=== PATIENT | male | born 1990 | race Caucasian/White ===

== ENCOUNTER 2019-04-15 19:30 | Emergency (ER) | payer MEDICAID ==
[~2019-04-15] VITALS: Ht 170.2 cm; Wt 65.8 kg
[2019-04-15 19:35] VITALS: Ht 170.2 cm; Wt 65.8 kg
[2019-04-15] MEDS ORDERED: IBUPROFEN800 MG PO (20:10)
[2019-04-15 20:27] VITALS: BP 138/79
== END 2019-04-15 20:27 | disposition home or self-care (01) ==
LOC: D.ER 19:30
DX: S93.402A Sprain of unspecified ligament of left ankle, initial encounter (principal); W17.2XXA Fall into hole, initial encounter; Y93.89 Activity, other specified; Y92.89 Other specified places as the place of occurrence of the external cause